=== PATIENT | male | born 1945 | race Asian ===

== ENCOUNTER 2024-05-08 13:48 | Inpatient (IN) | payer MEDICARE, OTHER ==
[~2024-05-08] VITALS: Ht 167.6 cm; Wt 70.3 kg
[2024-05-08 16:20] VITALS: BP 159/91; PULSE 103; RESP 18; TEMP 97.8; O2SAT 98
[2024-05-08 16:30] VITALS: O2SAT 98
[2024-05-08 17:00] VITALS: BP 147/95; PULSE 99; RESP 18
[2024-05-08] MEDS ORDERED: CETIRIZINE HCL 10 MG TABLET PO PRN (17:15)
[2024-05-08] MEDS ORDERED: DEXTROSE 50%-WATER 25 GM/50 ML SYRINGE IVP PRN (17:15)
[2024-05-08] MEDS: INSULIN LISPRO 100 UNITS/ML SQ PRN (18:39)
[2024-05-08 19:16] LABS: GLUCOMETER DEV NAME(LOC) 2WR.2B; GLUCOSE,POINT OF CARE 219 MG/DL (70-110)
[2024-05-08 20:15] VITALS: BP 139/79; PULSE 103; RESP 18; TEMP 97.9; O2SAT 96
[2024-05-08] MEDS: BENZONATATE 100 MG CAPSULE PO PRN (20:17)
[2024-05-08] MEDS: GuaiFENesin SR 600 MG ER TABLET PO PRN (20:17)
[2024-05-08] MEDS: OSELTAMIVIR PHOSPHATE 75 MG CAPSULE PO SCH (20:18)
[2024-05-08] MEDS: CEFDINIR 300 MG CAPSULE PO SCH (20:18)
[2024-05-08] MEDS: DOXYCYCLINE HYCLATE 100 MG TABLET PO SCH (20:19)
[2024-05-08] MEDS: ETHYL ALCOHOL 62% ANTISEPTIC NASAL SANITIZER 0.6 ML AMPUL NASAL SCH (20:20)
[2024-05-08 20:45] LABS: GLUCOMETER DEV NAME(LOC) 2WR.2B; GLUCOSE,POINT OF CARE 273 MG/DL (70-110)
[2024-05-08 21:00] VITALS: O2SAT 96
[2024-05-09] MEDS: ACETAMINOPHEN 325 MG TABLET PO PRN (03:24)
[2024-05-09 06:45] LABS: GLUCOMETER DEV NAME(LOC) 2WR.2B; GLUCOSE,POINT OF CARE 205 MG/DL (70-110)
[2024-05-09 08:00] VITALS: BP 124/94; PULSE 88; RESP 18; TEMP 98; O2SAT 99
[2024-05-09] MEDS: ENOXAPARIN SODIUM 40 MG/0.4 ML PF SYRINGE SQ SCH (08:20)
[2024-05-09] MEDS: AmLODIPine BESYLATE 10 MG TABLET PO SCH (08:20)
[2024-05-09] MEDS: GlyBURIDE 5 MG TABLET PO SCH (08:20)
[2024-05-09] MEDS: ASPIRIN 81 MG CHEWABLE TABLET PO SCH (08:21)
[2024-05-09] MEDS: MetFORMIN HCL 500 MG TABLET PO SCH (08:21)
[2024-05-09] MEDS: SitaGLIPtin PHOSPHATE 100 MG TABLET PO SCH (08:21)
[2024-05-09] MEDS: LOSARTAN POTASSIUM 50 MG TABLET PO SCH (08:21)
[2024-05-09] MEDS: EMPAGLIFLOZIN 25 MG TABLET PO SCH (08:21)
[2024-05-09 08:25] LABS: BASOPHILS % (AUTO) 0.4 % (0.0-2.0); EOSINOPHILS % (AUTO) 3.3 % (1.0-6.0); HEMOGLOBIN 13.4 g/dL (13.5-17.5); LYMPHOCYTES # (AUTO) 1.6 K/uL (1.0-4.8); LYMPHOCYTES % (AUTO) 14.6 % (22.0-44.0); MEAN CORPUSCULAR HEMOGLOBIN 29.3 pg (26.0-34.0); MEAN CORPUSCULAR HGB CONC 32.6 G/dL (31.0-37.0); MEAN CORPUSCULAR VOLUME 90 fL (80-100); MONOCYTES # (AUTO) 0.9 K/uL (0.1-1.0); MONOCYTES % (AUTO) 8.3 % (2.0-9.0); NEUTROPHILS % (AUTO) 73.4 % (40.0-70.0); PLATELET COUNT (AUTO) 392 K/uL (150-450); RED BLOOD CELL COUNT(AUTO) 4.55 MIL/uL (4.50-5.90); RED CELL DISTRIBUTION WIDTH 13.2 % (11.5-14.5); WHITE BLOOD COUNT (AUTO) 10.8 K/uL (4.5-11.0)
[2024-05-09 08:52] LABS: ALANINE AMINOTRANSFERASE 77 U/L (12-78); ALBUMIN 2.6 g/dL (3.4-5.0); ALKALINE PHOSPHATASE 101 U/L (46-116); ASPARTATE AMINOTRANSFERASE 53 U/L (15-37); BILIRUBIN,TOTAL 0.4 mg/dL (0.1-1.0); CALCIUM, TOTAL 9.4 mg/dL (8.8-10.5); CARBON DIOXIDE 29 mmol/L (22-29); CREATININE 0.92 mg/dL (0.60-1.30); GLOMERULAR FILTR. RATE CALC > 60 mL/min (>60); GLUCOSE,RANDOM 201 mg/dL (70-110); TOTAL PROTEIN, SERUM 7.7 g/dL (6.4-8.2); UREA NITROGEN, BLOOD 16 mg/dL (7-18)
[2024-05-09 09:16] LABS: ANION GAP 9 mmol/L (8-16); CHLORIDE 104 mmol/L (98-107); POTASSIUM 3.7 mmol/L (3.5-5.1); SODIUM SERUM 142 mmol/L (136-145)
[2024-05-09 11:40] LABS: GLUCOMETER DEV NAME(LOC) 2WR.2B; GLUCOSE,POINT OF CARE 213 MG/DL (70-110)
[2024-05-09] MEDS: COLCHICINE 0.6 MG TABLET PO ONE (14:10)
[2024-05-09 18:01] LABS: GLUCOMETER DEV NAME(LOC) 2WR.2B; GLUCOSE,POINT OF CARE 73 MG/DL (70-110)
[2024-05-09 21:00] VITALS: BP 143/74; PULSE 100; RESP 18; TEMP 97.9; O2SAT 96
[2024-05-09 21:26] LABS: GLUCOMETER DEV NAME(LOC) 2WR.2B; GLUCOSE,POINT OF CARE 101 MG/DL (70-110)
[2024-05-09 22:39] VITALS: O2SAT 98
[2024-05-10 06:50] LABS: GLUCOMETER DEV NAME(LOC) 2WR.2B; GLUCOSE,POINT OF CARE 85 MG/DL (70-110)
[2024-05-10] MEDS: COLCHICINE 0.6 MG TABLET PO PRN (07:59)
[2024-05-10 08:00] VITALS: BP 155/85; PULSE 93; RESP 18; TEMP 97.5; O2SAT 98
[2024-05-10 12:16] LABS: GLUCOMETER DEV NAME(LOC) 2WR.2B; GLUCOSE,POINT OF CARE 124 MG/DL (70-110)
[2024-05-10 17:55] LABS: GLUCOMETER DEV NAME(LOC) 2WR.1D; GLUCOSE,POINT OF CARE 190 MG/DL (70-110)
[2024-05-10 20:02] VITALS: BP 134/76; PULSE 106; RESP 18; TEMP 98.2; O2SAT 98
[2024-05-10] MEDS: NAPROXEN 500 MG TABLET PO PRN (21:42)
[2024-05-10 22:11] LABS: GLUCOMETER DEV NAME(LOC) 2WR.2B; GLUCOSE,POINT OF CARE 183 MG/DL (70-110)
[2024-05-10 23:51] VITALS: O2SAT 98
[2024-05-11 06:31] LABS: GLUCOMETER DEV NAME(LOC) 2WR.1D; GLUCOSE,POINT OF CARE 134 MG/DL (70-110)
[2024-05-11 08:00] VITALS: BP 142/97; PULSE 96; RESP 18; TEMP 97.9; O2SAT 100
[2024-05-11 11:30] LABS: GLUCOMETER DEV NAME(LOC) 2WR.1D; GLUCOSE,POINT OF CARE 171 MG/DL (70-110)
[2024-05-11 17:51] LABS: GLUCOMETER DEV NAME(LOC) 2WR.2B; GLUCOSE,POINT OF CARE 186 MG/DL (70-110)
[2024-05-11 20:26] VITALS: BP 136/77; PULSE 101; RESP 19; TEMP 97.9; O2SAT 99
[2024-05-11 22:34] VITALS: O2SAT 99
[2024-05-11 23:35] LABS: GLUCOMETER DEV NAME(LOC) 2WR.2B; GLUCOSE,POINT OF CARE 94 MG/DL (70-110)
[2024-05-12] MEDS ORDERED: METF-1211 PO (01:05)
[2024-05-12] MEDS ORDERED: GLYB-145 PO (01:06)
[2024-05-12] MEDS ORDERED: EMPA25TA3 PO (01:07)
[2024-05-12] MEDS ORDERED: SITA100 PO (01:07)
[2024-05-12] MEDS ORDERED: ASPI-1450 PO (01:12)
[2024-05-12] MEDS ORDERED: AMLO-258 PO (01:13)
[2024-05-12] MEDS ORDERED: ASPI81TA87 PO (01:13)
[2024-05-12 07:01] LABS: GLUCOMETER DEV NAME(LOC) 2WR.1D; GLUCOSE,POINT OF CARE 109 MG/DL (70-110)
[2024-05-12 07:11] LABS: CHOL/HDL RATIO 4.1 (4.2-7.3)
[2024-05-12 07:22] LABS: HEMOGLOBIN A1C 9.3 % (3.8-5.6)
[2024-05-12 08:00] VITALS: BP 143/81; PULSE 99; RESP 18; TEMP 98.1; O2SAT 97
[2024-05-12 12:00] LABS: GLUCOMETER DEV NAME(LOC) 2WR.2B; GLUCOSE,POINT OF CARE 106 MG/DL (70-110)
[2024-05-12 18:11] LABS: GLUCOMETER DEV NAME(LOC) 2WR.1D; GLUCOSE,POINT OF CARE 186 MG/DL (70-110)
[2024-05-12 20:00] VITALS: BP 108/62; PULSE 96; RESP 19; TEMP 98; O2SAT 96
[2024-05-12 21:11] LABS: GLUCOMETER DEV NAME(LOC) 2WR.2B; GLUCOSE,POINT OF CARE 124 MG/DL (70-110)
[2024-05-13 07:36] LABS: GLUCOMETER DEV NAME(LOC) 2WR.2B; GLUCOSE,POINT OF CARE 103 MG/DL (70-110)
[2024-05-13 07:36] LABS: GLUCOMETER DEV NAME(LOC) 2WR.2B; GLUCOSE,POINT OF CARE 67 MG/DL (70-110)
[2024-05-13 08:00] VITALS: BP 140/83; PULSE 94; RESP 18; TEMP 98.2; O2SAT 99
[2024-05-13 12:30] LABS: GLUCOMETER DEV NAME(LOC) 2WR.1D; GLUCOSE,POINT OF CARE 68 MG/DL (70-110)
[2024-05-13] MEDS: GlyBURIDE 5 MG TABLET PO SCH (17:01)
[2024-05-13 17:30] LABS: GLUCOMETER DEV NAME(LOC) 2WR.2B; GLUCOSE,POINT OF CARE 101 MG/DL (70-110)
[2024-05-13 20:00] VITALS: BP 123/78; PULSE 102; RESP 20; TEMP 98.1; O2SAT 100
[2024-05-13] MEDS: MELATONIN 3 MG TABLET PO PRN (20:21)
[2024-05-13 20:45] LABS: GLUCOMETER DEV NAME(LOC) 2WR.2B; GLUCOSE,POINT OF CARE 145 MG/DL (70-110)
[2024-05-14 07:06] LABS: GLUCOMETER DEV NAME(LOC) 2WR.1D; GLUCOSE,POINT OF CARE 89 MG/DL (70-110)
[2024-05-14 07:06] LABS: GLUCOMETER DEV NAME(LOC) 2WR.1D; GLUCOSE,POINT OF CARE 52 MG/DL (70-110)
[2024-05-14 08:05] VITALS: BP 134/77; PULSE 84; RESP 18; TEMP 98; O2SAT 98
[2024-05-14 12:06] VITALS: O2SAT 98
[2024-05-14 12:30] LABS: GLUCOMETER DEV NAME(LOC) 2WR.2B; GLUCOSE,POINT OF CARE 85 MG/DL (70-110)
[2024-05-14 17:10] LABS: GLUCOMETER DEV NAME(LOC) 2WR.1D; GLUCOSE,POINT OF CARE 44 MG/DL (70-110)
[2024-05-14 18:00] LABS: GLUCOMETER DEV NAME(LOC) 2WR.1D; GLUCOSE,POINT OF CARE 57 MG/DL (70-110)
[2024-05-14 18:56] LABS: GLUCOMETER DEV NAME(LOC) 2WR.1D; GLUCOSE,POINT OF CARE 112 MG/DL (70-110)
[2024-05-14 20:13] VITALS: BP 133/76; PULSE 100; RESP 18; TEMP 97.8; O2SAT 100
[2024-05-14 22:11] LABS: GLUCOMETER DEV NAME(LOC) 2WR.2B; GLUCOSE,POINT OF CARE 124 MG/DL (70-110)
[2024-05-15 00:09] VITALS: O2SAT 100
[2024-05-15 06:20] LABS: GLUCOMETER DEV NAME(LOC) 2WR.2B; GLUCOSE,POINT OF CARE 72 MG/DL (70-110)
[2024-05-15 07:45] VITALS: BP 134/88; PULSE 98; RESP 19; TEMP 97.9; O2SAT 98
[2024-05-15] MEDS: ERGOCALCIFEROL (VIT D2) 50,000 UNITS [1,250 MCG] CAPSULE PO SCH (08:16)
[2024-05-15 13:30] LABS: GLUCOMETER DEV NAME(LOC) 2WR.1D; GLUCOSE,POINT OF CARE 120 MG/DL (70-110)
[2024-05-15 18:56] LABS: GLUCOMETER DEV NAME(LOC) 2WR.2B; GLUCOSE,POINT OF CARE 82 MG/DL (70-110)
[2024-05-15 20:00] VITALS: BP 127/77; PULSE 103; RESP 19; TEMP 98.1; O2SAT 100
[2024-05-15 21:05] LABS: GLUCOMETER DEV NAME(LOC) 2WR.1D; GLUCOSE,POINT OF CARE 118 MG/DL (70-110)
[2024-05-16] MEDS ORDERED: LOSA-382 PO ×2 (04:41→10:18)
[2024-05-16] MEDS ORDERED: ERGO500054 PO ×2 (04:42→10:18)
[2024-05-16] MEDS ORDERED: COLC-3 PO ×2 (04:43→10:18)
[2024-05-16 08:00] VITALS: BP 130/76; PULSE 104; RESP 18; TEMP 98.3; O2SAT 99
[2024-05-16] MEDS: SitaGLIPtin PHOSPHATE 50 MG TABLET PO SCH (08:14)
[2024-05-16 08:55] VITALS: BP 130/76; PULSE 104; RESP 18; TEMP 98.3; O2SAT 99
[2024-05-16] MEDS ORDERED: ASPI-1450 PO (10:18)
[2024-05-16] MEDS ORDERED: AMLO-258 PO (10:18)
[2024-05-16] MEDS ORDERED: SITA50 PO (10:18)
[2024-05-16] MEDS ORDERED: INSU100V SQ (10:18)
[2024-05-16] MEDS ORDERED: EMPA25TA3 PO (10:18)
[2024-05-16] MEDS ORDERED: METF-1211 PO (10:18)
[2024-05-16 17:10] LABS: GLUCOMETER DEV NAME(LOC) 2WR.2B; GLUCOSE,POINT OF CARE 101 MG/DL (70-110)
== END 2024-05-16 18:10 | disposition home health service (06) | DRG 82 ==
LOC: EDSEX 16:13 → 2WR 16:13
PROVIDERS: ADMIT Physical Medicine & Rehabilitation; ATTEND Physical Medicine & Rehabilitation
DX: S06.899A Other specified intracranial injury with loss of consciousness of unspecified duration, initial encounter (principal); J10.00 Influenza due to other identified influenza virus with unspecified type of pneumonia; G93.40 Encephalopathy, unspecified; S22.32XA Fracture of one rib, left side, initial encounter for closed fracture; E11.65 Type 2 diabetes mellitus with hyperglycemia; E78.5 Hyperlipidemia, unspecified; I10 Essential (primary) hypertension; J30.9 Allergic rhinitis, unspecified; M48.061 Spinal stenosis, lumbar region without neurogenic claudication; R62.7 Adult failure to thrive; Z74.09 Other reduced mobility; R32 Unspecified urinary incontinence; W18.39XA Other fall on same level, initial encounter; R29.6 Repeated falls; R13.10 Dysphagia, unspecified; Z78.9 Other specified health status; Z86.73 Personal history of transient ischemic attack (TIA), and cerebral infarction without residual deficits; Y93.89 Activity, other specified; Y92.89 Other specified places as the place of occurrence of the external cause; Y99.8 Other external cause status
CPT/HCPCS: 80053; 80061; 82962; 83036; 84550; 85025; 87081; 92507; 92523; 97110; 97112; 97116; 97163; 97167; 97530; 97535; 99366; J1650